=== PATIENT | male | born 1945 | race Caucasian/White ===

== ENCOUNTER 2018-12-10 16:43 | Inpatient (IN) ==
[2018-12-10] MEDS ORDERED: NS 1,000 ML IV SCH (19:30)
[2018-12-10 20:07] LABS: AGAP 13; ALB/GLOB RATIO 1.5; ALBUMIN 4.1 g/dL (3.5-5.0); ALKALINE PHOSPHATASE 79 U/L (32-122); BUN 29 mg/dL (8-22); CALCIUM 9.4 mg/dL (8.8-10.2); CHLORIDE 103 mmol/L (98-107); COSMO 278; CREATININE 0.8 mg/dL (0.7-1.2); ESTIMATED GFR > 60; GLUCOSE 96 mg/dL (70-104); GOT 23 U/L (10-34); GPT 23 U/L (10-44); POTASSIUM 4.5 mmol/L (3.5-5.1); SODIUM 136 mmol/L (136-145); TCO2 20 mmol/L (25-35); TOTAL BILIRUBIN 0.22 mg/dL (0.20-1.00); TOTAL PROTEIN 6.9 g/dL (6.3-8.3)
[2018-12-10 20:15] LABS: BASO# 0.03 X1000 (0.0-0.2); BASO% 0.4 % (0.0-0.8); EOS# 0.15 X1000 (0.0-0.7); EOS% 1.9 % (0.0-10.0); HEMATOCRIT 44.8 % (42.0-52.0); HEMOGLOBIN 14.5 g/dL (14.0-18.0); IMM GRAN# 0.03 X1000 (0.0-0.04); IMM GRAN% 0.4 % (0.0-0.5); LYMPH# 2.68 X1000 (1.2-3.4); LYMPH% 33.5 % (20.5-51.1); MCH 30.7 PG (27-31); MCHC 32.4 g/dL (33-37); MCV 94.7 FL (81-99); MONO# 0.58 X1000 (0.11-0.59); MONO% 7.3 % (1.7-9.3); MPV 9.1 FL (7.4-10.4); NEUT# 4.53 X1000 (1.4-6.5); NEUT% 56.5 % (42.2-75.2); PLT 294 X1000 (130-400); RBC 4.73 XMIL (4.7-6.1); RDW 14.1 % (11.5-14.5)
[2018-12-10 20:16] LABS: HEMOGLOBIN A1C 5.3 % (4.8-6.0)
[2018-12-10 20:37] LABS: FREE T4 0.94 ng/dL (0.93-1.70); TSH 1.71 uIUmL (0.27-4.20)
[2018-12-10] MEDS: LOVENOX SUBQ SCH (21:06)
[2018-12-10 21:22] LABS: SED RATE 7 mm/hr (0-15)
--- NOTE | 2018-12-10 23:23 | HISTORY AND PHYSICAL ---
CHIEF COMPLAINT: 1. History of fluctuating memory loss. 2. History of dizziness and falling. HISTORY OF PRESENT ILLNESS: He is a 73-year-old white gentleman, was brought to my office as a new visit. The patient basically wanted a second opinion. While he was in the waiting room I heard he fell out of the chair. He hit on the skull. No external injuries noted. He was well known to me before while we were doing exercises 20 years ago. He was brought in by his . Over the last few years his has been deported. He is progressively worsening in his mental status, declining in activities of daily living as well as instrumental activities. He was evaluated at [facility], had the diagnosis of Lewy body dementia. He has hallucinations, legally blind in the left eye, not able to walk with recurrent falls, losing consciousness and dizzy spells. In my office, Mini-Mental exam score is 18/30, and he was orthostatic. Blood pressure was 80/60 upon standing, feeling dizzy. Basically admitted to the hospital with worsening of Lewy body dementia along with orthostatic hypotension, and also had a head injury. Needs to be monitored. As a result, a hospital admission was warranted. PAST MEDICAL HISTORY: Lewy body dementia, Folstein score of 18/30; depression; right foot pressure sore on the right great toe; central retinal artery occlusion; history of hyperlipidemia, stopped taking medicine; BPH, stopped taking Flomax. PAST SURGICAL HISTORY: Bilateral cataract surgery, appendectomy, bilateral total knee arthroplasty by Dr. Martinez. MEDICATIONS: Aricept 10 mg, Effexor 225 daily. ALLERGIES: Penicillin, with skin rashes. SOCIAL HISTORY: first time for 27 years. 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 No smoking. No alcohol. No drug abuse. FAMILY HISTORY: Father of at the age 82 from dementia. Mother at 70 from lung cancer. HEALTH MAINTENANCE: Last prostate exam 11/2018. He was not up-to-date on health reminders. REVIEW OF SYSTEMS: HEENT: No headache. Vision problem in the left eye. No earache. No sore throat. No difficulty in swallowing. No goiter. No lymphadenopathies. Cardiopulmonary: No chest pain, shortness of breath, PND, orthopnea. GI: No nausea, vomiting, abdominal pain or bleeding per rectum. : No history of hesitancy, frequency, dysuria. No trouble of urination. No swelling of legs. History of back pain due to spinal stenosis, recurrent falls, cognition problem, visual hallucinations, insomnia. PHYSICAL EXAMINATION: VITAL SIGNS: Temperature is 97 degrees, blood pressure is 72 upon standing, 125/80, 99% on room air. Blood pressure drops 102/69, not tachycardic. HEENT: Atraumatic, normocephalic. Pupils equal and reactive to light. Bilateral cataracts removed. TMs are normal. Nose and throat within normal limits. NECK: Supple. No lymphadenopathy. No carotid bruit. CHEST: Bilateral air entry. HEART: Sounds are regular. No murmur. Belly is soft, nontender. Good bowel sounds. GENITOURINARY: Prostate is yeimy. RECTAL: Heme-negative stool. EXTREMITIES: No peripheral edema or cyanosis. NEUROLOGICAL: No obvious neurologic deficits noted. LABORATORY DATA: CBC: White cell count 8, hematocrit 44.8, platelets 294,000. Sodium 136, potassium 4.8, chloride 103, BUN 29, creatinine 0.8, glucose 96. A1c 5.3, calcium 9.4. Vitamin D is slightly low. Vitamin B12 is normal. Normal thyroid function tests. Liver function tests were normal. ASSESSMENT AND PLAN: A 73-year-old white gentleman admitted to the hospital with progressive declining of dementia due to Lewy body, associated with visual hallucinations, fluctuation of consciousness and sleeping disturbances, as per the caregiver recurrent falls. Plan is as follows: 1. Head injury. We will get MRI of the brain. 2. Central retinal artery occlusion. We will get carotid Doppler. Continue on aspirin. 3. Intravenous fluids, orthostatic blood pressure. 4. Lipid profile in the morning. 5. Deep venous thrombosis prophylaxis with Lovenox. 6. Continue donepezil for dementia. Folstein score of 18/30. 7. We will try a low dose of Seroquel at bedtime, overnight pulse oximetry, for sleep disturbances. 8. Rule out orthostatic hypotension. Consider low dose of Sinemet. We will seek for second opinion with Dr. Saldana. 9. We will follow up on the pending studies. cc: Mikey Fitzgerald MD
[2018-12-11 07:45] LABS: CHOLESTEROL 268 mg/dL (0-200); HDL 41 mg/dL (35-55); LDL 161 mg/dL; TRIGLYCERIDES 329 mg/dL (39-160); VLDL 66 mg/dL
--- NOTE | 2018-12-11 09:42 | Diag Imaging Result Doc PS360 ---
MRI BRAIN W/WO CONTRAST - 12/11/2018 INDICATION: CVA COMPARISON: None FINDINGS: There is a small area of restricted diffusion in the periventricular left cerebral hemisphere. This also involves the left caudate head. This is compatible with a small lacunar type infarction. Otherwise, there is really not very much periventricular white matter ischemia. There is a small amount mainly in the right frontal lobe. No intracranial mass or hemorrhage. There is no abnormal contrast enhancement. Midline structures are unremarkable. IMPRESSION: Small recent lacunar infarction at the left caudate head and periventricular white matter. Otherwise, minimal old microvascular ischemia. Electronically signed by Garertt Junior 12/11/2018 9:40 AM
[2018-12-11] MEDS: THERA M PLUS PO SCH (10:19)
[2018-12-11] MEDS: EFFEXOR XR PO SCH ×2 (10:20→21:17)
[2018-12-11] MEDS: ARICEPT PO SCH (10:21)
[2018-12-11] MEDS: PROAMATINE PO SCH ×3 (10:22→21:17)
[2018-12-11] MEDS: ASPIRIN PO SCH (10:23)
[2018-12-11] MEDS: SEROQUEL PO SCH (21:17)
[2018-12-11] MEDS: LOVENOX SUBQ SCH (21:17)
--- NOTE | 2018-12-11 21:17 | PROGRESS NOTE ---
DATE: 12/11/2018 SUBJECTIVE: 1. The patient continues to have orthostatic hypotension. 2. Fluctuation of cognition. 3. Masked face and he is very extremely agitated at the day. He is not wearing the MARY hose. is also frustrated and he is also prone for falls. He had MRI of the brain done. Waiting for neurology consult. PHYSICAL EXAMINATION: Temperature is 97 degrees, pulse 73, blood pressure is 142/99 lying down, standing 89/60. Face is masked face.Chest: Clear. Heart: Sounds are regular. Abdomen: Belly is soft, nontender. Neurologic: No neurological deficits. IMAGING: MRI of the brain: Chronic ischemic changes. Carotid Dopplers was done. ASSESSMENT AND PLAN: 1. Lewy body dementia. 2. Vitamin D deficiency. 3. Hyperlipidemia. 4. 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 5. Central retinal artery occlusion. PLAN OF CARE: 1. Aspirin and we will consider using the Lipitor for hyperlipidemia. 2. Follow up on carotid Dopplers. 3. Continue on Aricept. 4. Deep vein thrombosis prophylaxis with Lovenox. 5. Started on ProAmatine 5 mg t.i.d. 6. Depression and anxiety on Effexor. 7. Agitation very sensitive for neuroleptics. We will give the low doses of Seroquel. 8. Physical therapy and awaiting neurology consult and will follow up. LEVEL OF DOCUMENTATION: 25 minutes. cc: Mikey Fitzgerald MD
[2018-12-12] MEDS: PROAMATINE PO SCH ×3 (10:21→17:59)
[2018-12-12] MEDS: THERA M PLUS PO SCH (10:21)
[2018-12-12] MEDS: ARICEPT PO SCH (10:22)
[2018-12-12] MEDS: ASPIRIN PO SCH (10:22)
[2018-12-12] MEDS: EFFEXOR XR PO SCH ×2 (10:22→21:15)
[2018-12-12] MEDS: SEROQUEL PO SCH (21:15)
[2018-12-12] MEDS: LOVENOX SUBQ SCH (21:18)
--- NOTE | 2018-12-12 21:47 | Carotid Study ---
DATE: 12/10/2018 REFERRING PHYSICIAN: Lenny Fitzgerald MD INTERPRETING PHYSICIAN: Tate Nieto MD CONSUMER INSIGHT MANAGER: [place]. INDICATION: The patient has syncope. FINDINGS: Velocities are noted. The right internal/common carotid ratio was 0.8, left 0.8. Percent stenosis 0% to 39% on the right, 0% to 39% on the left. No significant plaque is seen. There is antegrade vertebral flow bilaterally. INTERPRETATION: No significant plaque disease identified. There is antegrade vertebral flow bilaterally. cc: MD Mikey Garcia MD
--- NOTE | 2018-12-12 22:40 | PROGRESS NOTE ---
DATE: 12/12/2018 SUBJECT: The patient is a little better still. Still blood pressure is slowly improving, anxious to go home. PHYSICAL EXAMINATION: Vital signs: Temperature is 98 degrees. Vitals are stable. HEENT: Within normal limits. Masked facies. Physical exam, no change. ASSESSMENT AND PLAN: 1. Lewy body dementia with parkinsonism features, hallucinations. Continue on Aricept and Effexor for anxiety, depression. Seroquel at bedtime for agitation. Midodrine 10 mg t.i.d. for orthostatic hypotension with MARY hose stockings. 2. Continue with aspirin. Continue on vitamin D 5000 units daily. 3. If things will not get better, consider low doses of Sinemet and plan to discharge home tomorrow. Discussed the plan of care with the family. LEVEL OF DOCUMENTATION: 35 minutes. cc: Mikey Fitzgerald MD
[2018-12-13 08:26] VITALS: BP 76/49
[2018-12-13] MEDS: THERA M PLUS PO SCH (08:48)
[2018-12-13] MEDS: ASPIRIN PO SCH (08:48)
[2018-12-13] MEDS: EFFEXOR XR PO SCH (08:48)
[2018-12-13] MEDS: PROAMATINE PO SCH (08:48)
[2018-12-13] MEDS: ARICEPT PO SCH (08:48)
[2018-12-13] MEDS ORDERED: FLU VACCINE IM ONE (11:34)
[2018-12-13] MEDS ORDERED: PNEUMOVAX 23 IM ONE (11:35)
--- NOTE | 2018-12-15 19:17 | DISCHARGE SUMMARY ---
ADMISSION DATE: 12/10/2018 DISCHARGE DATE: 12/13/2018 DISCHARGING DIAGNOSIS: Lewy body dementia associated with fluctuation of memory function, visual hallucinations, orthostatic hypotension with parkinsonism features. SECONDARY DIAGNOSES: 1. Right foot pressure ulcer on the medial side of great toe. 2. Overactive bladder. 3. Central retinal artery occlusion on the left side. 4. Hyperlipidemia. 5. Vitamin D deficiency. 6. Anxiety. BRIEF HISTORY: Please see the H and P that was done on 12/10/2018. In brief, he is a 73-year-old white gentleman who is well known to me for several years before, Came in with the family with dizziness, frequent falling. He has been diagnosed at [facility] with Lewy body dementia. His condition has been worsening. Apparently, he had a fall in my waiting room with head injury on the back of the head. No external injuries noted. He was significantly orthostatic. He stopped taking Flomax. He was admitted to the hospital for further evaluation. HOSPITAL COURSE: 1. The patient has fluctuation of cognitive function, visual hallucinations, sleep disturbances, and orthostatic hypotension with parkinsonism features with masked faces and slight resting tremor. No rigidity noted. The patient had MRI of the brain that showed diffuse cerebral atrophy, enlarged ventricles, atrophy at insula, mostly on the left side. 2. Further workup revealed no hemorrhage on the MRI or fracture. 3. Carotid Dopplers were negative. 4. Laboratory data showed vitamin D is on the low side. Cholesterol is very high. The patient was significantly orthostatic for which he was given ProAmatine 10 mg t.i.d. along with MARY hose stockings. He has gone to the bathroom too often in the night time requiring a condom catheter. Postvoid residual urine is 8 mL. PSA was normal. 5. He also has some agitation sundown affect and very sensitive for neuroleptics. Consider low dose of Seroquel. I spoke to the family, the plan of care and course of the disease with the family. Arranged outpatient home health care. LABORATORY DATA: CBC: White cell count 8, hematocrit 44.8, platelet 294,000. Sodium 136, potassium 4.5, chloride 103, BUN 29, creatinine 0.8. LFTs were normal. A1c of 5.3, triglycerides 329, cholesterol 268, HDL 41. PSA 2.4. Vitamin B12 is normal. Vitamin D is on the low side. Carotid Dopplers were negative. DISCHARGING INSTRUCTIONS: Aricept 10 mg in the morning. Effexor 150 mg daily in the morning and 75 at bedtime. Aspirin 81 mg daily. ProAmatine 10 mg t.i.d. Quetiapine 25 at bedtime. Lipitor 40 mg daily. Condom catheters. PLAN OF CARE WITH HOME HEALTH: Bedside commode, walker with wheels, and orthostatic blood pressure every 12 hours. Needs assistance for ambulation and physical therapy. If the symptoms will not improve, consider low dose of Sinemet and follow up in my office next week. cc: MD Jessenia Romero III, MD MTDD
== END 2018-12-13 12:22 | disposition home or self-care (01) | DRG 57 ==
LOC: DIRADM 16:43 → 3N 17:07
PROVIDERS: ADMIT Internal Medicine; ATTEND Internal Medicine